=== PATIENT | female | born 1990 | race Caucasian/White ===

== ENCOUNTER 2016-09-03 18:01 | Emergency (ER) | payer SELFPAY ==
[~2016-09-03] VITALS: Ht 161.3 cm; Wt 124.1 kg
[~2016-09-03 18:01] MED LIST: CARI250T PO; NAPR500T3 PO; PREN-58 PO
[2016-09-03 18:05] VITALS: TEMP 98.9; Ht 161.3 cm; Wt 124.1 kg
[2016-09-03] MEDS ORDERED: BRIV50TA PO (18:44)
[2016-09-03] MEDS ORDERED: IBUP-1724 PO (18:44)
[2016-09-03] MEDS ORDERED: DM H PO (18:44)
--- NOTE | 2016-09-03 18:48 | NUR ---
PROVIDER DR QUILES IN ROOM W/ PT.
[2016-09-03] MEDS ORDERED: KETOROLAC 60mg/2ml INJECTION IM ONE (19:30)
--- NOTE | 2016-09-03 19:46 | ERPDOC ---
Departure Disposition Decision Date: September 03, 2016 Disposition Decision Time: 19:52 Disposition: 01 DISCHARGED HOME, SELF-CARE Impression Impression Impression: Primary Impression: SEIZURES Severity: Moderate Condition: Improved Seen By: Physician only Patient Instructions: Recurrent Seizures in Adults (ED) Problems/Meds/Labs Reviewed?: Yes Medications reviewed and manag: Yes Follow up care ordered?: Yes Mental Status: Alert Scripts Topiramate (Topamax) 50 Mg Tablet 0.5 TAB PO BID, #30 TAB Prov: MELANIA QUILES MD 09/03/16 Lorazepam (Ativan) 1 Mg Tablet 1 MG PO BID for SEIZURE ACTIVITY, #10 TAB Prov: MELANIA QUILES MD 09/03/16 HPI - General Medical General Chief Complaint: Seizure Stated Complaint: SEIZURES Time Seen by Provider: 18:48 HPI - General Medical Initial Comments 26-year-old female presents status post seizure. Patient had a visit to [facility] earlier today in regards to this. She has been started on a newer version of Keppra. Several years ago she was on Keppra for seizures, was able to stop it but in the last few weeks she has picked back up again. Dr. Pena has seen her and recommended she have an EEG done while she is building up levels of medication. She became frustrated enough with headaches and feeling fuzzy that she went in to be seen today. She then came to our ER, dissatisfied that nothing had been done. She has had more seizures in the last couple of days , her is very anxious about this. Allergies: Coded Allergies: latex (Verified Allergy, Unknown, RASH, 03/10/15) Past History Past Medical History ENMT: other Neurological: concussion, seizures Musculoskeletal: back pain Psychological: depression, drug abuse, suicide attempt Surgical History Joint: other Family History Family PMH: FOUND: [place], diabetes, hypertension Vaccines Hx Influenza Vaccination: No Hx Pneumococcal Vaccination: No Social History Smoking Status: Never smoker Sexuality: male partner Record Review Pertinent history updated: Yes Review of Systems Neurological General: see HPI All other Systems All Other Systems: Reviewed and Negative Physical Exam General General Nourishment: adult, obese Distress Description Patient is emotionally stressed, very concerned about the continuing seizures. Vitals and Pain First Documented Vital Signs Date Time Temp Pulse Resp B/P Pulse Ox O2 Delivery O2 Flow Rate FiO2 09/03/16 18:05 98.9 109 24 179/81 99 Room Air Weight: Kilograms: 124.100 Height (feet): 5 Height (inches): 3.50 Triage Pain Scale: Normal Exams: Head: Normocephalic w/o trauma Chest/Resp: Clear all amezquita, with good airflow, and symmetry bilaterally CV: Regular rate and rhythm, without murmur or gallop, Pulses 2+ all extremities, capillary refill, <2 seconds all ext., no pedal edema noted Abdomen: Bowel sounds positive, soft, non-tender, non-distended, no hepatosplenomegaly, masses or bruits noted Neurologic: Patient is alert, and oriented, cranial nerves, motor/sensory/ cerebellar, exams w/o gross deficits, to observation Psychiatric: Patient exhibits, appropriate attention, emotion and affect Differential Diagnoses Considering: Other (neurologic seizure, pseudoseizure, somatoform disorder, cluster headache) Progress Results/Orders Orders Procedure Category Date Status Time Ketorolac (Toradol) PHA 09/03/16 Complete 19:30 Medications Current ED Medications Ketorolac Tromethamine (Toradol) 60 mg O ONCE IM ; Start 09/03/16 at 19:30; Stop 09/03/16 at 19:31; Status DC Progress Progress Patient was given Toradol 60 mg IM for headache. I called and spoke with the physician at [place] who saw her in the ED, also spoke with Dr. Lamb. Dr. Lamb recommended changing to Topamax at low dose if she was concerned about side effects of the medication and did not want to continue with it. He would like her to get the EEG, which was scheduled for today but had to be delayed while she was at the hospital. Patient agreed to call and reschedule the EEG. I did discuss this with her, she would like to try staying with the current medication for another week. I wrote her prescription for Topamax to start if she decides to change from the current medication. Dr. Lamb had recommended this. She was discharged home to follow-up as an outpatient. She was offered Ativan and sent with Ativan ER pack to be used if she has more seizure. MELANIA QUILES MD September 03, 2016 19:46
[2016-09-03] MEDS ORDERED: LORA-204 PO (19:58)
[2016-09-03] MEDS ORDERED: TOPI50TA PO (19:58)
[2016-09-03 20:13] VITALS: BP 145/75; PULSE 110; RESP 24; O2SAT 99
--- NOTE | 2016-09-03 20:13 | NUR ---
DISCHARGE PT GIVEN INSTRUCTIONS FOR CONT CARE AND FOLLOWUP FOR SEIZURES W/ RX OF ATIVAN AND TOPAMAX PT VERBALIZED UNDERSTANDING AND SIGNED FORM. PT ER AMBULATORY W/O ASSIST, ALERT, VS CHARTED, CONDITION IMPROVED HEADACHE TO 7/10, NO ACTIVE THROUGHOUT.
== END 2016-09-03 20:13 | disposition home or self-care (01) ==
LOC: ED 18:01
DX: R56.9 Unspecified convulsions (principal)
CPT/HCPCS: 96372